=== PATIENT | female | born 1990 | race African-American/Black ===

== ENCOUNTER 2021-09-06 13:31 | Emergency (ER) | payer OTHER ==
[2021-09-06 13:37] VITALS: PULSE 61
--- NOTE | 2021-09-06 21:49 | ED ---
General Adult HPI - General Chief complaint: Neck Pain/Injury Stated complaint: Swollen bump on neck Time Seen by Provider: 09/06/21 20:52 Source: patient, RN notes reviewed Mode of arrival: ambulatory Limitations: no limitations - History of Present Illness Initial comments: 31-year-old female presents to the emergency department with concerns of swell ing on the right side of her neck. Patient states the enlarged area has been present for more than a week, and possibly closer to 2 weeks. Patient states she has not been able to check her temperature at home but reports increased fatigue, body aches, painful swallowing, mild sore throat, and discomfort upon palpation. Has not been seen by PCP. Denies fever, chills, rash, headache, dizziness, chest pain, cough, shortness of breath, difficulty breathing and swallowing, abdominal pain, nausea, vomiting, diarrhea, dysuria, and hematuria. - Related Data Home Medications Medication Instructions Recorded Confirmed FLUoxetine HCL [PROzac] 20 mg PO DAILY 09/06/21 09/06/21 Naltrexone HCl [Revia] 50 mg PO DAILY 09/06/21 09/06/21 Previous Rx's Medication Instructions Recorded predniSONE 50 mg PO DAILY #4 tab 09/07/21 Allergies Allergy/AdvReac Type Severity Reaction Status Date / Time amoxicillin Allergy Rash/Hives Verified 09/06/21 13:37 Review of Systems ROS Statement: Those systems with pertinent positive or pertinent negative responses have been documented in the HPI. ROS Other: All systems not noted in ROS Statement are negative. Past Medical History Past Medical History: Asthma History of Any Multi-Drug Resistant Organisms: None Reported Past Surgical History: No Surgical Hx Reported Past Psychological History: No Psychological Hx Reported Smoking Status: Current every day smoker Past Alcohol Use History: None Reported Past Drug Use History: Marijuana General Exam Limitations: no limitations (Well-developed, well-nourished female in no acute distress. Initial temperature 98.9, pulse 61, respirations 20, blood pressure 101/53, pulse ox 99% on room air.) General appearance: alert, in no apparent distress Head exam: Present: atraumatic, normocephalic, normal inspection Eye exam: Present: normal appearance. Absent: scleral icterus, conjunctival injection, periorbital swelling ENT exam: Present: normal exam, mucous membranes moist, TM's normal bilaterally Expanded Throat exam: other (Rt tonsil>Lt tonsil). negative: normal inspection, tonsillar erythema, tonsillar exudate Neck exam: Present: normal inspection, tenderness (submandibular tenderness upon palpation of the right side), lymphadenopathy (right sided submandibular lymphadenopathy) Respiratory exam: Present: normal lung sounds bilaterally. Absent: respiratory distress, wheezes, rales, rhonchi, stridor, chest wall tenderness Cardiovascular Exam: Present: regular rate, normal rhythm, normal heart sounds. Absent: systolic murmur, diastolic murmur, rubs, gallop, clicks GI/Abdominal exam: Present: soft, normal bowel sounds. Absent: distended, tenderness, guarding, rebound, rigid Neurological exam: Present: alert, oriented X3, CN II-XII intact Psychiatric exam: Present: normal affect Skin exam: Present: warm, dry, intact, normal color. Absent: rash Course Vital Signs 09/06/21 09/06/21 13:35 23:34 Temperature 98.9 F 98.1 F Pulse Rate 61 Respiratory 20 17 Rate Blood Pressure 101/53 106/37 O2 Sat by Pulse 99 Oximetry Medical Decision Making - Medical Decision Making 31-year-old female in no significant past medical history presents to the emergency department for evaluation of right-sided cervical lymphadenopathy 1-2 weeks. Upon exam, patient is well-appearing and in no acute distress. She is afebrile. She does have tonsillar hypertrophy, right side greater than left side. Uvula is midline. Laboratory studies were reviewed and are unremarkable. CT of the soft tissues of the neck was negative aside from findings of hypertrophied tonsils and adenoids. No abscess. Patient was given a dose of oral steroid. She is instructed to follow up with her PCP as needed. Return parameters discussed in detail. Patient verbalizes understanding and agrees with this plan. Attending: Levy. - Lab Data Result diagrams: 09/06/21 22:07 09/06/21 22:07 Lab Results 09/06/21 09/06/21 09/06/21 Range/Units 22:07 22:07 22:07 WBC 9.6 (3.8-10.6) k/uL RBC 4.04 (3.80-5.40) m/uL Hgb 13.0 (11.4-16.0) gm/dL Hct 39.6 (34.0-46.0) % MCV 97.9 (80.0-100.0) fL MCH 32.1 (25.0-35.0) pg MCHC 32.8 (31.0-37.0) g/dL RDW 12.8 (11.5-15.5) % Plt Count 210 (150-450) k/uL MPV 9.0 Neutrophils % 69 % Lymphocytes % 20 % Monocytes % 5 % Eosinophils % 3 % Basophils % 1 % Neutrophils # 6.6 (1.3-7.7) k/uL Lymphocytes # 1.9 (1.0-4.8) k/uL Monocytes # 0.5 (0-1.0) k/uL Eosinophils # 0.3 (0-0.7) k/uL Basophils # 0.1 (0-0.2) k/uL Sodium 137 (137-145) mmol/L Potassium 4.1 (3.5-5.1) mmol/L Chloride 104 (98-107) mmol/L Carbon Dioxide 29 (22-30) mmol/L Anion Gap 4 mmol/L BUN 12 (7-17) mg/dL Creatinine 0.62 (0.52-1.04) mg/dL Est GFR (CKD-EPI)AfAm >90 (>60 ml/min/1.73 sqM) Est GFR (CKD-EPI)NonAf >90 (>60 ml/min/1.73 sqM) Glucose 89 (74-99) mg/dL Calcium 8.7 (8.4-10.2) mg/dL Total Bilirubin 0.4 (0.2-1.3) mg/dL AST 18 (14-36) U/L ALT 10 (4-34) U/L Alkaline Phosphatase 55 (38-126) U/L Total Protein 7.6 (6.3-8.2) g/dL Albumin 3.8 (3.5-5.0) g/dL Heterophile Antibody Negative (Negative) - Radiology Data Radiology results: report reviewed, image reviewed CT soft tissues of the neck was obtained with contrast. Report was reviewed in its entirety. Impression per Dr. Kim is enlarged tonsils and adenoids. No abscess seen. No evidence of retropharyngeal mass. Disposition Clinical Impression: Cervical lymphadenopathy, Tonsillar hypertrophy Disposition: HOME SELF-CARE Condition: Stable Instructions (If sedation given, give patient instructions): Lymphadenopathy (ED) Additional Instructions: Consider taking a decongestant if needed for congestion. Take steroid as directed. Minimize intake of sugar and sweets. Follow-up with her PCP for recheck in the next 24-48 hours. Return to the emergency department with any new, worsening, or concerning symptoms such as difficulty swallowing or difficulty breathing. Prescriptions: predniSONE 50 mg PO DAILY #4 tab Is patient prescribed a controlled substance at d/c from ED?: No Referrals: None,Stated [Primary Care Provider] - 1-2 days Time of Disposition: 00:20
[2021-09-06 22:14] LABS: Basophils # (A) 0.1 k/uL (0-0.2); Basophils % (A) 1 %; Eosinophils # (A) 0.3 k/uL (0-0.7); Eosinophils % (A) 3 %; HCT 39.6 % (34.0-46.0); Lymphocytes # (A) 1.9 k/uL (1.0-4.8); Lymphocytes % (A) 20 %; MCH 32.1 pg (25.0-35.0); MCHC 32.8 g/dL (31.0-37.0); MCV 97.9 fL (80.0-100.0); Monocytes # (A) 0.5 k/uL (0-1.0); Monocytes % (A) 5 %; Neutrophils # (A) 6.6 k/uL (1.3-7.7); Neutrophils % (A) 69 %; Platelet Count 210 k/uL (150-450); RBC 4.04 m/uL (3.80-5.40); RDW 12.8 % (11.5-15.5); WBC 9.6 k/uL (3.8-10.6)
[2021-09-06 22:23] LABS: ALT 10 U/L (4-34); AST 18 U/L (14-36); African American GFR (CKD) >90 (>60 ml/min/1.73 sqM); Albumin 3.8 g/dL (3.5-5.0); Alkaline Phosphatase 55 U/L (38-126); Anion Gap 4 mmol/L; Blood Urea Nitrogen 12 mg/dL (7-17); Calcium 8.7 mg/dL (8.4-10.2); Carbon Dioxide 29 mmol/L (22-30); Chloride 104 mmol/L (98-107); Glucose 89 mg/dL (74-99); Non-African American GFR(CKD) >90 (>60 ml/min/1.73 sqM); Potassium 4.1 mmol/L (3.5-5.1); Sodium 137 mmol/L (137-145); Total Bilirubin 0.4 mg/dL (0.2-1.3); Total Protein 7.6 g/dL (6.3-8.2)
[2021-09-06 23:35] VITALS: BP 106/37; RESP 17; TEMP 98.1
--- NOTE | 2021-09-06 23:50 | CT ---
EXAMINATION TYPE: CT soft tissue neck w con DATE OF EXAM: 09/06/2021 COMPARISON: None HISTORY: pain CT DLP: 223.8 mGycm Automated exposure control for dose reduction was used. CONTRAST: Performed with IV Contrast, patient injected with 100 mL of Isovue 300. Images obtained from the level of the aortic arch to the sella turcica with IV contrast. The thyroid gland is fairly symmetric. There are small rounded hypodensities in the left thyroid lobe consistent with small cysts. These measure up to 5 mm. There is normal opacification of the carotid arteries and jugular veins. There is opacification of the vertebral arteries. Cervical esophagus appe ars intact. No evidence of a foreign body. The epiglottis is normal. Tongue appears normal. There is bilateral hypertrophy of the tonsils. There is also some thickening of the adenoids measure 2 cm. The re is some asymmetric enlargement of the right tonsil compared to the left. No evidence of an abscess . Mandibular ring is intact. Temporal bones are intact. The parotid glands are symmetric. The submandibular salivary glands are symmetric. No evidence of any significant cervical lymphadenopathy. IMPRESSION: Enlarged tonsils and adenoids. No abscess seen. No evidence of retropharyngeal mass.
[2021-09-07] MEDS ORDERED: predniSONE 50 MG TAB PO STA (00:17)
== END 2021-09-07 00:50 | disposition home or self-care (01) ==
LOC: EC 13:31
DX: J35.1 Hypertrophy of tonsils (principal); R59.0 Localized enlarged lymph nodes; J45.909 Unspecified asthma, uncomplicated; F17.200 Nicotine dependence, unspecified, uncomplicated; F12.90 Cannabis use, unspecified, uncomplicated
CPT/HCPCS: 36415; 80053; 85025; 86308; 70491; 99284; Q9967

== ENCOUNTER 2021-09-14 13:36 | Emergency (ER) | payer OTHER ==
[2021-09-14] MEDS ORDERED: SODIUM CHLORIDE 0.9% 1,000 ML IV STA (14:02)
--- NOTE | 2021-09-14 14:40 | XR ---
EXAMINATION TYPE: XR chest 1V portable DATE OF EXAM: 09/14/2021 COMPARISON: NONE HISTORY: Chest pain TECHNIQUE: Single frontal view of the chest is obtained. FINDINGS: Subtle interstitial prominence suggested which could reflect interstitial pneumonitis. No focal pneum onia seen at this time. The cardiac silhouette size is within normal limits. The osseous structures are intact. IMPRESSION: 1. Subtle interstitial prominence suggested which could reflect interstitial pneumonitis. No focal p neumonia seen at this time.
[2021-09-14 14:44] LABS: ALT 13 U/L (4-34); AST 22 U/L (14-36); African American GFR (CKD) >90 (>60 ml/min/1.73 sqM); Albumin 3.3 g/dL (3.5-5.0); Alkaline Phosphatase 42 U/L (38-126); Anion Gap 5 mmol/L; Blood Urea Nitrogen 11 mg/dL (7-17); Calcium 8.3 mg/dL (8.4-10.2); Carbon Dioxide 30 mmol/L (22-30); Chloride 102 mmol/L (98-107); Glucose 94 mg/dL (74-99); Lipase 95 U/L (23-300); Magnesium 2.1 mg/dL (1.6-2.3); Non-African American GFR(CKD) >90 (>60 ml/min/1.73 sqM); Potassium 4.2 mmol/L (3.5-5.1); Sodium 137 mmol/L (137-145); Total Bilirubin 0.4 mg/dL (0.2-1.3); Total Protein 6.9 g/dL (6.3-8.2)
[2021-09-14 14:46] LABS: HCT 35.6 % (34.0-46.0); INR 0.9 (<1.2); MCH 32.6 pg (25.0-35.0); MCHC 33.8 g/dL (31.0-37.0); MCV 96.5 fL (80.0-100.0); Mean Platelet Volume 9.4; Partial Thromboplastin Time 22.4 sec (22.0-30.0); Platelet Count 161 k/uL (150-450); Prothrombin Time 10.3 sec (9.0-12.0); RBC 3.68 m/uL (3.80-5.40); RDW 13.5 % (11.5-15.5); WBC 5.4 k/uL (3.8-10.6)
[2021-09-14 15:04] LABS: Eosinophils # (M) 0.16 k/uL (0-0.7); Monocytes # (M) 0.92 k/uL (0-1.0); Neutrophils # (M) 3.02 k/uL (1.3-7.7); Neutrophils % (M) 56 %; Nucleated Red Blood Cells 0 /100 WBC (0-0); Rouleaux Present; Total Cells Counted 100
--- NOTE | 2021-09-14 16:32 | ED ---
Chest Pain HPI - General Chief Complaint: Chest Pain Stated Complaint: chest pain Time Seen by Provider: 09/14/21 13:50 Source: patient Mode of arrival: EMS - History of Present Illness Initial Comments: Patient complains of chest pain. Pain is sharp. Pain is in the middle of the chest. It is not associated with breathing. She has no shortness of breath. She has no palpitations. She has no swelling in the arms or legs. She has no lightheadedness. She has no dizziness. The pain did not radiate anywhere. She took no medicine for the pain. - Related Data Home Medications Medication Instructions Recorded Confirmed FLUoxetine HCL [PROzac] 20 mg PO DAILY 09/06/21 09/14/21 Acetaminophen [Tylenol 8 Hour] 650 mg PO Q4H PRN 09/14/21 09/14/21 Calcium/Magnesium/Zinc 1 tab PO TID PRN 09/14/21 09/14/21 [Iifyqvm-Dosjqasdp-Hilb Tablet] Chlorpheniramine Maleate 4 mg PO Q4H PRN 09/14/21 09/14/21 Ibuprofen [Motrin Ib] 600 mg PO Q6H PRN 09/14/21 09/14/21 guaiFENesin [guaiFENesin Oral 200 mg PO Q4H PRN 09/14/21 09/14/21 Solution] Allergies Allergy/AdvReac Type Severity Reaction Status Date / Time amoxicillin Allergy Rash/Hives Verified 09/14/21 15:28 Review of Systems ROS Statement: Those systems with pertinent positive or pertinent negative responses have been documented in the HPI. ROS Other: All systems not noted in ROS Statement are negative. EKG Findings - EKG Comments: EKG Findings:: Twelve-lead EKG shows ventricular rate 62 bpm, normal [place] interval and QRS complexes, no ST elevation or depression, interpreted by me as normal sinus rhythm. Past Medical History Past Medical History: Asthma History of Any Multi-Drug Resistant Organisms: None Reported Past Surgical History: No Surgical Hx Reported Past Psychological History: No Psychological Hx Reported Smoking Status: Current every day smoker Past Alcohol Use History: None Reported Past Drug Use History: Marijuana General Exam General appearance: alert, in no apparent distress Head exam: Present: atraumatic, normocephalic, normal inspection Eye exam: Present: normal appearance, PERRL, EOMI. Absent: scleral icterus, conjunctival injection, periorbital swelling ENT exam: Present: normal exam, mucous membranes moist Neck exam: Present: normal inspection. Absent: tenderness, meningismus, lymphadenopathy Respiratory exam: Present: normal lung sounds bilaterally. Absent: respiratory distress, wheezes, rales, rhonchi, stridor Cardiovascular Exam: Present: regular rate, normal rhythm, normal heart sounds. Absent: systolic murmur, diastolic murmur, rubs, gallop, clicks GI/Abdominal exam: Present: soft, normal bowel sounds. Absent: distended, tenderness, guarding, rebound, rigid Extremities exam: Present: normal inspection, full ROM, normal capillary refill. Absent: tenderness, pedal edema, joint swelling, calf tenderness Back exam: Present: normal inspection Neurological exam: Present: alert, oriented X3, CN II-XII intact Psychiatric exam: Present: normal affect, normal mood Skin exam: Present: warm, dry, intact, normal color. Absent: rash Course Vital Signs 09/14/21 13:51 Temperature 98.2 F Pulse Rate 68 Respiratory 16 Rate Blood Pressure 94/51 O2 Sat by Pulse 97 Oximetry Chest Pain MDM - [facility] Patient complains of chest pain. Her workup is negative. Her EKG is normal. Chest x-rays clear. She is feeling better. She has 0 perc criteria. I can find no evidence of an acute emergency at this time. Patient is stable for discharge. Disposition Clinical Impression: Atypical chest pain Disposition: HOME SELF-CARE Condition: Good Instructions (If sedation given, give patient instructions): Chest Pain (ED) Is patient prescribed a controlled substance at d/c from ED?: No Referrals: None,Stated [Primary Care Provider] - 1-2 days
[2021-09-14 16:56] VITALS: BP 118/70; PULSE 69; RESP 18; TEMP 98.4
== END 2021-09-14 17:09 | disposition home or self-care (01) ==
LOC: EC 13:36
DX: R07.89 Other chest pain (principal); J45.909 Unspecified asthma, uncomplicated; F17.200 Nicotine dependence, unspecified, uncomplicated
CPT/HCPCS: 36415; 71045; 80053; 83690; 83735; 83880; 84484; 85025; 85610; 85730; 86308; 93005; 96360; 99285